=== PATIENT | female | born 1975 | race Caucasian/White ===

== ENCOUNTER 2017-04-26 15:27 | Outpatient (RCR) | payer OTHER ==
[~2017-04-26 15:27] MED LIST: [UNRECOGNIZED DRUG - CODE] TP
[2017-04-26] MEDS ORDERED: CALC-93 PO (16:41)
== END 2017-04-28 14:47 | disposition home or self-care (01) ==
LOC: RAON 15:27
PROVIDERS: ATTEND Radiology Radiation Oncology
DX: Z85.3 Personal history of malignant neoplasm of breast (principal); Z92.3 Personal history of irradiation
CPT/HCPCS: 99212